=== PATIENT | female | born 1950 | race Two or more races ===

== ENCOUNTER 2021-08-29 15:46 | Emergency (ER) | payer OTHER ==
[~2021-08-29] VITALS: Ht 175.3 cm; Wt 79.4 kg
[2021-08-29 15:58] VITALS: BP 102/58
== END 2021-08-29 18:56 | disposition left against medical advice (07) ==
LOC: ER 15:46
DX: R07.89 Other chest pain (principal); M25.512 Pain in left shoulder; Z53.21 Procedure and treatment not carried out due to patient leaving prior to being seen by health care provider